=== PATIENT | male | born 1950 | race Caucasian/White ===

== ENCOUNTER 2018-02-11 14:11 | Emergency (ER) | payer MEDICARE, OTHER ==
[2018-02-11 14:23] VITALS: BP 124/72; PULSE 68; RESP 20; TEMP 98.2; O2SAT 100
--- NOTE | 2018-02-11 14:55 | C.PDOC ---
Time Seen by Provider: 02/11/18 14:33 Chief Complaint (Nursing): Abnormal Skin Integrity Past Medical History Vital Signs: Last Vital Signs Temp 98.2 F 02/11/18 14:18 Pulse 68 02/11/18 14:18 Resp 20 02/11/18 14:18 BP 124/72 02/11/18 14:18 Pulse Ox 100 02/11/18 14:18 - Social History Hx Alcohol Use: No Hx Substance Use: No - Immunization History Hx Tetanus Toxoid Vaccination: No Hx Influenza Vaccination: No Hx Pneumococcal Vaccination: No ED Course And Treatment O2 Sat by Pulse Oximetry: 100 Disposition - Disposition Disposition: HOME/ ROUTINE Disposition Time: 14:53 Condition: STABLE Additional Instructions: return to er with worsening symptoms or concerns. Instructions: Skin Lesion Removal - Clinical Impression Clinical Impression: Cyst
--- NOTE | 2018-02-11 15:07 | C.PDOC ---
History Of Present Illness 67 year old male presents to the ED for evaluation of a cysts to the back of his head that patient states he has " for a long time". denies pain. refuses and i and d in the er. Patient denies fever, chill, nausea, vomit, rash. Time Seen by Provider: 02/11/18 14:33 Chief Complaint (Nursing): Abnormal Skin Integrity History Per: Patient History/Exam Limitations: no limitations Onset/Duration Of Symptoms: Days Current Symptoms Are (Timing): Still Present Location Of Injury: Posterior: Head Recent travel outside of the [place]: No Additional History Per: Patient Past Medical History Reviewed: Historical Data, Nursing Documentation, Vital Signs Vital Signs: Last Vital Signs Temp 98.2 F 02/11/18 14:18 Pulse 68 02/11/18 14:18 Resp 20 02/11/18 14:18 BP 124/72 02/11/18 14:18 Pulse Ox 100 02/11/18 15:12 - Medical History PMH: No Chronic Diseases Surgical History: No Surg Hx Family History: States: Unknown Family Hx - Social History Hx Alcohol Use: No Hx Substance Use: No - Immunization History Hx Tetanus Toxoid Vaccination: No Hx Influenza Vaccination: No Hx Pneumococcal Vaccination: No Review Of Systems Except As Marked, All Systems Reviewed And Found Negative. Skin: Positive for: Other (cyst) Physical Exam - Physical Exam Appears: Non-toxic, No Acute Distress Skin: Normal Color, Warm, Dry Head: Atraumatic, Normacephalic, Other (0.5 cysts back of the head) Eye(s): bilateral: Normal Inspection, PERRL, EOMI Ear(s): Bilateral: Normal Nose: No Discharge Oral Mucosa: Moist Neck: Normal ROM, Supple Extremity: Normal ROM, No Tenderness, No Swelling Neurological/Psych: Oriented x3, Normal Speech Gait: Steady ED Course And Treatment O2 Sat by Pulse Oximetry: 100 (ON RA) Pulse Ox Interpretation: Normal Medical Decision Making Medical Decision Making: Upon being discharged patient started demanding cream for his cyst. Bacitracin given. Disposition - Disposition Referrals: [facility] [Outside] [facility] [Outside] [email or web address] [Outside] Disposition: HOME/ ROUTINE Disposition Time: 03:00 Condition: STABLE Additional Instructions: return to er with worsening symptoms or concerns. Prescriptions: Bacitracin 1 ea TOP BID #1 fp Instructions: Skin Lesion Removal Forms: [id number] (Panamanian) - Clinical Impression Clinical Impression: Cyst - Scribe Statement The provider has reviewed the documentation as recorded by the Scribe Evangelista Drummond All medical record entries made by the Scribe were at my direction and personally dictated by me. I have reviewed the chart and agree that the record accurately reflects my personal performance of the history, physical exam, medical decision making, and the department course for this patient. I have also personally directed, reviewed, and agree with the discharge instructions and disposition.
== END 2018-02-11 14:58 | disposition home or self-care (01) ==
LOC: C.ER 14:11
DX: L72.9 Follicular cyst of the skin and subcutaneous tissue, unspecified (principal)